=== PATIENT | male | born 1980 | race African-American/Black ===

== ENCOUNTER 2021-09-05 02:13 | Inpatient (IN) | payer MEDICARE ==
[2021-09-05] MEDS ORDERED: Sodium Chloride 0.9% 1,000 ML IV PRN ×8 (03:30→03:41)
[2021-09-05] MEDS ORDERED: ADD ELECTROLYTE REPLACEMENT SET TO PROFILE FS SCH (03:30)
[2021-09-05] MEDS ORDERED: Dextrose 50% Abboject 50 ML SYRINGE SLOW IVP PRN ×2 (03:30→08:59)
[2021-09-05] MEDS ORDERED: Insulin Regular 300 UNITS/3 ML VIAL IVP SCH (03:30)
[2021-09-05] MEDS ORDERED: D5 1/2 NS w/20 mEq KCL 1,000 ML IV PRN ×2 (03:30→03:41)
[2021-09-05] MEDS ORDERED: Dextrose 5% in Water 1,000 ML IV PRN ×2 (03:30→08:59)
[2021-09-05] MEDS ORDERED: Dextrose 5 %-0.45 % NaCl 1,000 ML IV PRN ×2 (03:30→03:41)
[2021-09-05] MEDS ORDERED: NS 0.9% w/ 20 MEQ KCL 1,000 ML/1,000 ML BAG IV PRN ×2 (03:30)
[2021-09-05] MEDS ORDERED: INSULIN REGULAR IN 0.9 % NACL 100 UNIT in Premix Bag 1 BAG IVPB SCH ×2 (03:30→03:45)
[2021-09-05] MEDS ORDERED: Electrolyte Replacement Protocol FS SCH (03:30)
[2021-09-05] MEDS ORDERED: NS 0.9% w/ 20 MEQ KCL 1,000 ML IV PRN ×2 (03:41)
[2021-09-05] MEDS ORDERED: Electrolyte Replacement Protocol IVPB SCH (03:41)
[2021-09-05] MEDS ORDERED: Mag-Al Plus 1200 MG/1200 MG/120 MG/30 ML UDCUP PO PRN (03:43)
[2021-09-05] MEDS ORDERED: Ondansetron PF 4 MG/2 ML Vial IVP PRN (03:43)
[2021-09-05 04:53] LABS: Anion Gap 12 mmol/L (10-20); BUN (Urea Nitrogen) 66 mg/dL (8.9-20.6); Calc. Creatinine Clearance 39 mL/min (70-130); Calcium 7.7 mg/dL (7.8-10.44); Carbon Dioxide 19 mmol/L (22-29); Chloride 110 mmol/L (98-107); Glucose 197 mg/dL (70-105); Sodium 137 mmol/L (136-145)
[2021-09-05 05:12] LABS: Phosphorus 1.5 mg/dL (2.3-4.7)
[2021-09-05] MEDS ORDERED: Sodium Phosphate 15 MMOL in Sodium Chloride 0.9% 250 ML 250 ML IVPB ONE (05:30)
[2021-09-05] MEDS ORDERED: Magnesium 2 GM/50 ML 2 GM in Premix Bag 1 BAG IVPB SCH (07:30)
[2021-09-05] MEDS ORDERED: Enoxaparin Sodium 30 MG/0.3 ML SYRINGE ONE (08:00)
[2021-09-05 08:47] LABS: Anion Gap 10 mmol/L (10-20); BUN (Urea Nitrogen) 56 mg/dL (8.9-20.6); Calc. Creatinine Clearance 46 mL/min (70-130); Calcium 7.6 mg/dL (7.8-10.44); Carbon Dioxide 19 mmol/L (22-29); Chloride 111 mmol/L (98-107); Glucose 140 mg/dL (70-105); Potassium 4.1 mmol/L (3.5-5.1); Sodium 136 mmol/L (136-145)
[2021-09-05] MEDS ORDERED: Enoxaparin Sodium 30 MG/0.3 ML SYRINGE SC SCH (09:00)
[2021-09-05] MEDS ORDERED: Non-Formulary Medication 1 EACH (Bictegrav/Emtricit/Tenofov Ala [Biktarvy 50-200-25 Mg Tab PO SCH (09:00)
[2021-09-05] MEDS: Pantoprazole 40 MG VIAL IVP SCH (09:55)
[2021-09-05] MEDS: PHOS-NAK 1 PKT PACK PO SCH ×4 (10:02→17:42)
[2021-09-05] MEDS: Lantus 1000 UNITS/10 ML VIAL SC SCH ×2 (10:07→20:33)
[2021-09-05 12:05] LABS: Anion Gap 9 mmol/L (10-20); BUN (Urea Nitrogen) 51 mg/dL (8.9-20.6); Calc. Creatinine Clearance 53 mL/min (70-130); Calcium 7.5 mg/dL (7.8-10.44); Carbon Dioxide 18 mmol/L (22-29); Chloride 112 mmol/L (98-107); Glucose 185 mg/dL (70-105); Potassium 4.4 mmol/L (3.5-5.1); Sodium 135 mmol/L (136-145)
[2021-09-05 13:40] LABS: #Monocytes 1.1 10x3/uL (0.0-1.1); #Neutrophils 8.8 10x3/uL (1.5-8.4); %Basophils 0.2 % (0.0-2.0); %Eosinophils 0.2 % (0.0-6.0); %Lymphocytes 29.9 % (18.0-47.0); %Monocytes 7.6 % (0.0-10.0); %Neutrophils 61.7 % (40.0-75.0); Hemoglobin 9.9 g/dL (13.5-17.5); Mean Corpuscular HGB CONC 33.7 g/dL (32.0-36.0); Mean Corpuscular Hemoglobin 26.1 pg (27.0-33.0); Mean Corpuscular Volume 77.6 fl (81.2-95.1); Mean Platelet Volume 10.9 fl (7.4-10.4); Platelet Count 186 10x3/uL (150-450); RBC Distribution Width 14.5 % (11.5-14.5); Red Blood Cell (RBC) Count 3.79 10x6/uL (4.32-5.72)
[2021-09-05 14:03] LABS: ALT (SGPT) 29 U/L (8-55); AST (SGOT) 12 U/L (5-34); Albumin 3.5 g/dL (3.5-5.0); Alkaline Phosphatase 116 U/L (40-110); Anion Gap 12 mmol/L (10-20); BUN (Urea Nitrogen) 49 mg/dL (8.9-20.6); Bilirubin, Total 0.6 mg/dL (0.2-1.2); Calc. Creatinine Clearance 50 mL/min (70-130); Calcium 7.8 mg/dL (7.8-10.44); Carbon Dioxide 17 mmol/L (22-29); Chloride 111 mmol/L (98-107); Globulin 3.5 g/dL (2.4-3.5); Glucose 195 mg/dL (70-105); Potassium 4.5 mmol/L (3.5-5.1); Sodium 135 mmol/L (136-145)
[2021-09-05 15:23] LABS: White Blood Cell (WBC) Count 14.3 10x3/uL (3.5-10.5)
[2021-09-05] MEDS ORDERED: BIKTARVY PO SCH (17:00)
[2021-09-05] MEDS: HumaLOG 300 UNITS/3 ML VIAL SC PRN (17:40)
[2021-09-06 04:11] LABS: #Eosinphils 0.1 10x3/uL (0.0-0.5); #Monocytes 0.8 10x3/uL (0.0-1.1); #Neutrophils 6.8 10x3/uL (1.5-8.4); %Basophils 0.3 % (0.0-2.0); %Eosinophils 0.9 % (0.0-6.0); %Lymphocytes 33.6 % (18.0-47.0); %Monocytes 6.7 % (0.0-10.0); %Neutrophils 58.2 % (40.0-75.0); Hemoglobin 8.5 g/dL (13.5-17.5); Mean Corpuscular HGB CONC 32.2 g/dL (32.0-36.0); Mean Corpuscular Hemoglobin 25.8 pg (27.0-33.0); Mean Platelet Volume 11.2 fl (7.4-10.4); Platelet Count 157 10x3/uL (150-450); RBC Distribution Width 14.6 % (11.5-14.5); White Blood Cell (WBC) Count 11.7 10x3/uL (3.5-10.5)
[2021-09-06 04:31] LABS: ALT (SGPT) 21 U/L (8-55); AST (SGOT) 10 U/L (5-34); Albumin 3.1 g/dL (3.5-5.0); Alkaline Phosphatase 94 U/L (40-110); Anion Gap 10 mmol/L (10-20); BUN (Urea Nitrogen) 34 mg/dL (8.9-20.6); Bilirubin, Total 0.5 mg/dL (0.2-1.2); Calc. Creatinine Clearance 57 mL/min (70-130); Calcium 8.1 mg/dL (7.8-10.44); Carbon Dioxide 20 mmol/L (22-29); Cardiac Risk 3.7 (Less than 4.5); Chloride 112 mmol/L (98-107); Cholesterol 107 mg/dl (< 200 Desired); Glucose 227 mg/dL (70-105); HDL Cholesterol 29 mg/dL (>60 Neg Risk); LDL Cholesterol, Calculated 58 mg/dL; Magnesium 2.1 mg/dL (1.6-2.6); Potassium 4.2 mmol/L (3.5-5.1); Protein, Total 6.1 g/dL (6.0-8.3); Sodium 138 mmol/L (136-145); Triglycerides 100 mg/dL (Less than 150)
[2021-09-06 04:41] LABS: Phosphorus 1.9 mg/dL (2.3-4.7)
[2021-09-06 05:44] VITALS: BMI 19.3
[2021-09-06] MEDS ORDERED: Potassium Phosphate 30 MMOL in Sodium Chloride 0.9% 500 ML IVPB SCH (05:45)
[2021-09-06] MEDS: HumaLOG 300 UNITS/3 ML VIAL SC PRN (06:45)
[2021-09-06] MEDS: Pantoprazole 40 MG VIAL IVP SCH (08:23)
[2021-09-06] MEDS: Lantus 1000 UNITS/10 ML VIAL SC SCH (08:23)
[2021-09-06] MEDS ORDERED: BIKTARVY PO SCH (09:00)
[2021-09-06] MEDS ORDERED: Enoxaparin Sodium 30 MG/0.3 ML SYRINGE SC SCH (09:00)
[2021-09-06] MEDS ORDERED: FLU VACC QS2021-22(6MOS UP)/PF 60 MCG/0.5 ML SYRINGE IM ONE (09:00)
[2021-09-06 11:27] LABS: Hemoglobin A1c Greater than 14.0 % (4.0-6.0)
[2021-09-06 16:22] VITALS: BP 128/69; TEMP 98
== END 2021-09-06 17:52 | disposition home or self-care (01) | DRG 637 ==
LOC: CSHIMCU 02:13 → CSHTELE 09-06 02:14
PROVIDERS: ADMIT Family Medicine; ATTEND Family Medicine
DX: E10.10 Type 1 diabetes mellitus with ketoacidosis without coma (principal); R65.11 Systemic inflammatory response syndrome (SIRS) of non-infectious origin with acute organ dysfunction; N17.9 Acute kidney failure, unspecified; B20 Human immunodeficiency virus [HIV] disease; D72.829 Elevated white blood cell count, unspecified; E10.43 Type 1 diabetes mellitus with diabetic autonomic (poly)neuropathy; K31.84 Gastroparesis; E86.0 Dehydration; Z79.4 Long term (current) use of insulin; Z91.14 Patient's other noncompliance with medication regimen
CPT/HCPCS: 36415; 36416; 76770; 80048; 80053; 80061; 82010; 83036; 83735; 84100; 85025; 85048; 86359; 86360; C9113; J1650; J1815; J3480; J7030; J7050

== ENCOUNTER 2022-03-20 20:08 | Inpatient (IN) | payer MEDICARE ==
[2022-03-20 21:08] LABS: Hemoglobin 10.1 g/dL (13.5-17.5); Mean Corpuscular HGB CONC 33.9 g/dL (32.0-36.0); Mean Corpuscular Hemoglobin 26.6 pg (27.0-33.0); Mean Corpuscular Volume 78.4 fl (81.2-95.1); Mean Platelet Volume 11.3 fl (7.4-10.4); Platelet Count 153 10x3/uL (150-450); RBC Distribution Width 12.9 % (11.5-14.5); White Blood Cell (WBC) Count 11.9 10x3/uL (3.5-10.5)
[2022-03-20 21:09] LABS: ALT (SGPT) 36 U/L (8-55); AST (SGOT) 21 U/L (5-34); Albumin 3.7 g/dL (3.5-5.0); Alkaline Phosphatase 94 U/L (40-110); Anion Gap 21 mmol/L (10-20); BUN (Urea Nitrogen) 40 mg/dL (8.9-20.6); Bilirubin, Total 0.6 mg/dL (0.2-1.2); Calc. Creatinine Clearance 0 mL/min (70-130); Calcium 8.7 mg/dL (7.8-10.44); Carbon Dioxide 17 mmol/L (22-29); Chloride 95 mmol/L (98-107); Globulin 4.1 g/dL (2.4-3.5); Glucose 378 mg/dL (70-105); Potassium 4.8 mmol/L (3.5-5.1); Protein, Total 7.8 g/dL (6.0-8.3); Sodium 128 mmol/L (136-145)
[2022-03-20 21:24] LABS: MDiff Complete? YES
[2022-03-20 21:29] LABS: Band 36 % (5-11); Lymphocytes 23 % (21-51); Metamyelocyte 4 % (0-0); Monocytes 10 % (0-10); Neutrophil 27 % (42-75)
[2022-03-20 21:31] LABS: Platelet Morphology Comment Appears Adequate
[2022-03-20 21:32] LABS: RBC Morphology Normal
[2022-03-20 21:49] LABS: SARS-CoV-2 NAA Rapid Test Not Detected (NotDetected)
[2022-03-20] MEDS ORDERED: Cefepime 2 GM VIAL ONE (23:06)
[2022-03-20 23:10] LABS: Bilirubin Neg (Negative); Blood, Urine 25 (Negative); Clarity Clear (Clear); Glucose, Urine (Dipstick) 250 mg/dL (Negative); Ketone, Urine 5 mg/dL (Negative); Leukocyte Negative (Negative); Nitrite Negative (Negative); Protein, Urine (Dipstick) 100 mg/dl (Neg-Trace); Specific Gravity, Urine 1.025 (1.002-1.036); Urobilinogen Normal mg/dL (Less than 2)
[2022-03-20] MEDS ORDERED: INSULIN REGULAR IN 0.9 % NACL 100 UNIT/100 ML BAG ONE (23:37)
[2022-03-20 23:46] LABS: Lactic Acid 1.2 mmol/L (0.5-2.2)
[2022-03-21 00:02] LABS: Bacteria/HPF 1+ HPF (None Seen); RBC/HPF 0-3 HPF (0-3); Squamous Epithelial 0-3 HPF (0-3); Transitional Epithelial 0-3 HPF (None Seen)
[2022-03-21] MEDS ORDERED: NS 0.9% w/ 20 MEQ KCL 2,000 ML ONE (01:04)
[2022-03-21] MEDS ORDERED: Dextrose 5 %-0.45 % NaCl 1,000 ML IV PRN (01:35)
[2022-03-21] MEDS ORDERED: Sodium Chloride 0.9% 1,000 ML IV PRN ×4 (01:35)
[2022-03-21] MEDS ORDERED: D5 1/2 NS w/20 mEq KCL 1,000 ML IV PRN (01:35)
[2022-03-21] MEDS ORDERED: NS 0.9% w/ 20 MEQ KCL 1,000 ML IV PRN ×2 (01:35)
[2022-03-21] MEDS ORDERED: Electrolyte Replacement Protocol IVPB PRN (01:35)
[2022-03-21] MEDS ORDERED: [UNRECOGNIZED DRUG - OTHER] FS SCH (01:41)
[2022-03-21] MEDS ORDERED: INSULIN REGULAR IN 0.9 % NACL 100 UNIT in Premix Bag 1 BAG IVPB SCH (01:45)
[2022-03-21 02:04] LABS: Hemoglobin 8.6 g/dL (13.5-17.5); Mean Corpuscular HGB CONC 33.5 g/dL (32.0-36.0); Mean Corpuscular Hemoglobin 26.2 pg (27.0-33.0); Mean Corpuscular Volume 78.4 fl (81.2-95.1); Mean Platelet Volume 10.7 fl (7.4-10.4); Platelet Count 132 10x3/uL (150-450); RBC Distribution Width 12.8 % (11.5-14.5); Red Blood Cell (RBC) Count 3.28 10x6/uL (4.32-5.72); White Blood Cell (WBC) Count 10.6 10x3/uL (3.5-10.5)
[2022-03-21 02:11] VITALS: BMI 20.1
[2022-03-21 02:11] LABS: Anion Gap 17 mmol/L (10-20); BUN (Urea Nitrogen) 43 mg/dL (8.9-20.6); Calc. Creatinine Clearance 26 mL/min (70-130); Calcium 7.7 mg/dL (7.8-10.44); Carbon Dioxide 17 mmol/L (22-29); Chloride 103 mmol/L (98-107); Glucose 224 mg/dL (70-105); Magnesium 1.5 mg/dL (1.6-2.6); Sodium 133 mmol/L (136-145)
[2022-03-21] MEDS: Acetaminophen 325 MG TAB PO PRN ×2 (02:36→17:20)
[2022-03-21 05:28] LABS: Hemoglobin 8.7 g/dL (13.5-17.5); Mean Corpuscular HGB CONC 33.7 g/dL (32.0-36.0); Mean Corpuscular Hemoglobin 26.8 pg (27.0-33.0); Mean Corpuscular Volume 79.4 fl (81.2-95.1); Mean Platelet Volume 10.7 fl (7.4-10.4); Platelet Count 130 10x3/uL (150-450); RBC Distribution Width 12.9 % (11.5-14.5); Red Blood Cell (RBC) Count 3.25 10x6/uL (4.32-5.72); White Blood Cell (WBC) Count 8.4 10x3/uL (3.5-10.5)
[2022-03-21 05:55] LABS: Anion Gap 14 mmol/L (10-20); BUN (Urea Nitrogen) 40 mg/dL (8.9-20.6); Calc. Creatinine Clearance 30 mL/min (70-130); Calcium 7.4 mg/dL (7.8-10.44); Carbon Dioxide 17 mmol/L (22-29); Chloride 109 mmol/L (98-107); Glucose 82 mg/dL (70-105); Magnesium 1.4 mg/dL (1.6-2.6); Phosphorus 2.8 mg/dL (2.3-4.7); Potassium 4.8 mmol/L (3.5-5.1); Sodium 135 mmol/L (136-145)
[2022-03-21] MEDS ORDERED: Cefepime 2 GM in Sodium Chloride 0.9% 100 ML IVPB SCH (06:00)
[2022-03-21 06:01] LABS: MDiff Complete? YES
[2022-03-21 06:05] LABS: Band 35 % (5-11); Lymphocytes 21 % (21-51); Metamyelocyte 2 % (0-0); Monocytes 12 % (0-10); Neutrophil 30 % (42-75)
[2022-03-21 06:08] LABS: Dohle Bodies MODERATE; Platelet Morphology Comment Appears Decreased
[2022-03-21 06:09] LABS: RBC Morphology Normal
[2022-03-21] MEDS ORDERED: Calcium Gluconate 4.6 MEQ in Sodium Chloride 0.9% 100 ML IVPB SCH (06:25)
[2022-03-21] MEDS ORDERED: Magnesium 2 GM/50 ML(in water) 2 GM in Premix Bag 1 BAG IVPB SCH (06:30)
[2022-03-21] MEDS ORDERED: Calcium Gluc 4.6 MEQ/10 ML (100 MG/ML) ONE (06:44)
[2022-03-21] MEDS: Pantoprazole 40 MG VIAL IVP SCH (08:41)
[2022-03-21] MEDS: Saccharomyces boulardii 250 MG CAP PO SCH (08:42)
[2022-03-21] MEDS: Heparin 5,000 UNITS/ML VIAL SC SCH ×3 (08:42→21:08)
[2022-03-21] MEDS ORDERED: [UNRECOGNIZED DRUG - OTHER] PO SCH (09:00)
[2022-03-21 10:43] LABS: Anion Gap 14 mmol/L (10-20); BUN (Urea Nitrogen) 40 mg/dL (8.9-20.6); Calc. Creatinine Clearance 30 mL/min (70-130); Carbon Dioxide 14 mmol/L (22-29); Chloride 109 mmol/L (98-107); Glucose 288 mg/dL (70-105); Potassium 4.7 mmol/L (3.5-5.1); Sodium 132 mmol/L (136-145)
[2022-03-21] MEDS ORDERED: Dextrose 5% in Water 1,000 ML IV PRN (12:48)
[2022-03-21] MEDS ORDERED: Dextrose 50% Abboject 50 ML SYRINGE SLOW IVP PRN (12:48)
[2022-03-21] MEDS: HumaLOG 300 UNITS/3 ML VIAL SC PRN ×3 (13:06→21:08)
[2022-03-21] MEDS: Cefepime 2 GM in Sodium Chloride 0.9% 100 ML IVPB SCH (17:28)
[2022-03-21] MEDS: Lantus 1000 UNITS/10 ML VIAL SC SCH (20:44)
[2022-03-22 00:53] VITALS: TEMP 98.6
[2022-03-22 04:06] LABS: Anion Gap 14 mmol/L (10-20); BUN (Urea Nitrogen) 36 mg/dL (8.9-20.6); Calc. Creatinine Clearance 36 mL/min (70-130); Calcium 8.2 mg/dL (7.8-10.44); Carbon Dioxide 12 mmol/L (22-29); Chloride 112 mmol/L (98-107); Glucose 195 mg/dL (70-105); Potassium 4.9 mmol/L (3.5-5.1); Sodium 133 mmol/L (136-145)
[2022-03-22 04:14] LABS: Hemoglobin 8.4 g/dL (13.5-17.5); Mean Corpuscular HGB CONC 33.5 g/dL (32.0-36.0); Mean Corpuscular Hemoglobin 26.7 pg (27.0-33.0); Mean Corpuscular Volume 79.7 fl (81.2-95.1); Mean Platelet Volume 11.2 fl (7.4-10.4); Platelet Count 160 10x3/uL (150-450); RBC Distribution Width 13.3 % (11.5-14.5); Red Blood Cell (RBC) Count 3.15 10x6/uL (4.32-5.72); White Blood Cell (WBC) Count 11.4 10x3/uL (3.5-10.5)
[2022-03-22 04:21] LABS: MDiff Complete? YES
[2022-03-22 04:25] LABS: Band 15 % (5-11); Eosinophils 2 % (0-10); Lymphocytes 21 % (21-51); Monocytes 8 % (0-10); Neutrophil 54 % (42-75)
[2022-03-22 04:27] LABS: Platelet Morphology Comment Appears Adequate; RBC Morphology Normal
[2022-03-22] MEDS: Cefepime 2 GM in Sodium Chloride 0.9% 100 ML IVPB SCH ×2 (06:02→17:27)
[2022-03-22] MEDS: HumaLOG 300 UNITS/3 ML VIAL SC PRN (07:42)
[2022-03-22] MEDS: Lantus 1000 UNITS/10 ML VIAL SC SCH ×2 (07:43→22:05)
[2022-03-22] MEDS: Pantoprazole 40 MG VIAL IVP SCH (07:44)
[2022-03-22] MEDS: Saccharomyces boulardii 250 MG CAP PO SCH (07:44)
[2022-03-22] MEDS: Heparin 5,000 UNITS/ML VIAL SC SCH ×3 (07:44→21:30)
[2022-03-22] MEDS ORDERED: Magnesium 2 GM/50 ML(in water) 2 GM in Premix Bag 1 BAG IVPB SCH (08:00)
[2022-03-22 20:21] VITALS: BP 103/63
[2022-03-23 16:11] LABS: %CD4 (Helper/Inducer) 9.5 % (30.8-58.5); Absolute CD4 162 /uL (359-1519); Lymphocytes/Gated Cell Count 1.7 x10E3/uL (0.7-3.1); Total Lymphocyte 17 % (Not Estab.); WBC Total Count 10.4 x10E3/uL (3.4-10.8)
[2022-03-25 17:13] LABS: LOG10 HIV-1 RNA 1.477 (.)
== END 2022-03-22 22:43 | disposition home or self-care (01) | DRG 637 ==
LOC: CSHERS 20:08 → CSHIMCU 03-21 01:41
PROVIDERS: ADMIT Family Medicine; ATTEND Internal Medicine
DX: E10.10 Type 1 diabetes mellitus with ketoacidosis without coma (principal); J18.9 Pneumonia, unspecified organism; N17.9 Acute kidney failure, unspecified; E87.1 Hypo-osmolality and hyponatremia; Z21 Asymptomatic human immunodeficiency virus [HIV] infection status; Z20.822 Contact with and (suspected) exposure to COVID-19; Z79.4 Long term (current) use of insulin; Z79.899 Other long term (current) drug therapy; Z83.3 Family history of diabetes mellitus; Z80.0 Family history of malignant neoplasm of digestive organs
CPT/HCPCS: 36415; 36416; 71045; 80048; 80053; 81003; 81015; 82010; 83605; 83735; 84100; 84484; 85025; 85027; 86361; 87040; 87536; 93005; 94760; 96361; 96365; 96366; 96367; 96368; C9113; J0610; J0692; J1644; J1815; J1956; J3370; J3475; J3480; J3490